=== PATIENT | male | born 2000 | race Caucasian/White ===

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

== ENCOUNTER 2018-02-23 10:56 | Emergency (ER) | payer BC, OTHER ==
[~2018-02-23] VITALS: Ht 175.3 cm; Wt 72.6 kg
[~2018-02-23 10:56] MED LIST changes: +ALBU90OI INH; +Flovent Disku100 MCG INH
[2018-02-23] MEDS ORDERED: QUET100 PO (11:11)
[2018-02-23] MEDS ORDERED: Prednisone20 MG PO (11:56)
== END 2018-02-23 12:02 | disposition home or self-care (01) ==
LOC: ER 10:56
DX: J45.901 Unspecified asthma with (acute) exacerbation (principal); F17.210 Nicotine dependence, cigarettes, uncomplicated; Z79.51 Long term (current) use of inhaled steroids
CPT/HCPCS: 94640; 96372; 99284-25; J2930